=== PATIENT | male | born 1965 | race Caucasian/White ===

== ENCOUNTER 2019-05-14 20:36 | Emergency (ER) | payer OTHER ==
[~2019-05-14] VITALS: Ht 73 cm; Wt 115.5 kg
[~2019-05-14 20:36] MED LIST: COZAAR 50MG50 MG/TAB PO; NIASPAN 500MG500 MG
[2019-05-14 20:41] VITALS: PULSE 80; TEMP 98
[2019-05-14] MEDS ORDERED: LOTREL 10 MG-401 CAP PO (20:47)
[2019-05-14] MEDS ORDERED: ADDERALL5 MG PO (20:47)
[2019-05-15 00:07] VITALS: BP 167/93
== END 2019-05-15 00:07 | disposition short-term general hospital (02) ==
LOC: COL.ER 20:36
DX: D49.2 Neoplasm of unspecified behavior of bone, soft tissue, and skin (principal); R20.2 Paresthesia of skin; R20.0 Anesthesia of skin; I10 Essential (primary) hypertension; F90.9 Attention-deficit hyperactivity disorder, unspecified type; Z90.49 Acquired absence of other specified parts of digestive tract; Z98.890 Other specified postprocedural states

== ENCOUNTER 2019-07-05 14:00 | Outpatient (RCR) | payer OTHER ==
[~2019-07-05 14:00] MED LIST changes: +ADDERALL5 MG PO; +LOTREL 10 MG-401 CAP PO
[2019-08-24] MEDS ORDERED: OSCAL 500 TAB500 MG PO (22:50)
== END 2019-09-13 | disposition home or self-care (01) ==
LOC: WSC
DX: C90.30 Solitary plasmacytoma not having achieved remission (principal)

== ENCOUNTER 2019-08-24 22:34 | Emergency (ER) | payer OTHER ==
[~2019-08-24] VITALS: Ht 185.4 cm; Wt 110.5 kg
[2019-08-24 22:43] VITALS: BP 167/99; TEMP 97.6
[2019-08-24] MEDS ORDERED: OSCAL 500 TAB500 MG PO (22:50)
[2019-08-24 23:45] LABS: BASO # 0.1 (0.0-0.2); BASO % 0.8 % (0.0-2.0); EOS # 0.1 (0.0-0.7); EOS % 1.4 % (0-4.0); GRAN # 4.8 (1.4-6.5); GRAN % 75.2 % (42.2-75.2); HEMOGLOBIN 15.3 g/dl (13.5-18.0); LYMPH # 0.7 (1.2-3.4); LYMPH % 11.2 % (20.0-51.0); MEAN CELL VOLUME 86 fl (80.0-100.0); MEAN CORPUSCULAR HEMOGLOBIN 28 pg (27.0-31.0); MEAN CORPUSCULAR HGB CONC 33 g/dl (33.0-37.0); MEAN PLATELET VOLUME 11.9 fl (7.4-10.4); MONO # 0.7 (0.1-0.6); MONO % 11.2 % (1.7-9.3); PLATELET COUNT 228 K/mm3 (130-400); RED BLOOD COUNT 5.38 M/mm3 (4.20-5.60); REDCELL DISTRIBUTION WIDTH-CV 13.2 % (11.5-14.5)
[2019-08-24 23:48] LABS: PROTHROMBIN TIME 11.7 SECONDS (9.7-12.8)
[2019-08-24 23:54] LABS: ALBUMIN 4.6 gm/dL (3.5-5.0); BILIRUBIN,TOTAL 1.4 mg/dL (0.0-1.0); CALCIUM 9.5 mg/dL (8.4-10.2); CREATININE, serum 0.81 (0.66-1.25); POTASSIUM 4.3 mmol/L (3.4-5.0); TOTAL PROTEIN 7.9 gm/dL (6.4-8.2)
[2019-08-25 01:55] VITALS: PULSE 72
== END 2019-08-25 01:55 | disposition home or self-care (01) ==
LOC: COL.ER 22:34
PROVIDERS: Emergency Medicine
DX: R53.1 Weakness (principal); R20.0 Anesthesia of skin; F90.9 Attention-deficit hyperactivity disorder, unspecified type; I10 Essential (primary) hypertension
CPT/HCPCS: Q9967